=== PATIENT | male | born 1965 | race American Indian/Alaskan Native ===

== ENCOUNTER 2020-07-30 14:15 | Emergency (ER) | payer SELFPAY ==
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
--- NOTE | 2020-07-30 15:43 | XRay Report ---
LEFT INDEX FINGER 3 VIEWS INDICATION / CLINICAL INFORMATION: left index finger laceration with saw. COMPARISON: None available. FINDINGS: There is a compound fracture/laceration involving the distal tuft left index finger. Signer Name: Jose Carlos Jasso MD Signed: 07/30/2020 3:39 PM Workstation Name: [id number]
[2020-07-30] MEDS ORDERED: DIPHtheria,PERTUSSIS(ACELL),TETANUS VACCINE/PF 0.5 ML VIAL IM ONE (17:38)
[2020-07-30] MEDS ORDERED: ceFAZolin 1 GM VIAL IM ONE (17:38)
[2020-07-30] MEDS ORDERED: NEOMY 3.5 MG/BACIT 400 UNITS/POLY B 5000 UNITS/GM OINT PACKET TP ONE ×2 (18:15→18:17)
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
[2020-07-30 19:04] VITALS: BP 141/87
== END 2020-07-30 19:21 | disposition home or self-care (01) ==
LOC: ED 14:15
DX: S69.82XA Other specified injuries of left wrist, hand and finger(s), initial encounter (principal); F17.200 Nicotine dependence, unspecified, uncomplicated; Z79.899 Other long term (current) drug therapy; X58.XXXA Exposure to other specified factors, initial encounter; Y93.89 Activity, other specified; Y92.89 Other specified places as the place of occurrence of the external cause; Y99.8 Other external cause status
CPT/HCPCS: 73140; 90471; 90715; 96372; 99283; A6250; J0690